=== PATIENT | female | born 1945 | race Caucasian/White ===

== ENCOUNTER 2017-12-01 09:06 | Emergency (ER) | payer OTHER ==
[~2017-12-01] VITALS: Ht 157.5 cm; Wt 68.0 kg
[2017-12-01] MEDS ORDERED: ASPIRIN325 PO (09:35)
[2017-12-01] MEDS ORDERED: KEFLEX500 M1 PO (11:01)
[2017-12-01] MEDS ORDERED: MOBIC7.5 MG PO (11:01)
[2017-12-01 11:45] VITALS: BP 149/85
== END 2017-12-01 11:45 | disposition home or self-care (01) ==
LOC: ER 09:06
DX: M25.462 Effusion, left knee (principal); L03.115 Cellulitis of right lower limb; M23.90 Unspecified internal derangement of unspecified knee; Z88.5 Allergy status to narcotic agent; Z88.1 Allergy status to other antibiotic agents; Z88.2 Allergy status to sulfonamides

== ENCOUNTER 2017-12-11 05:29 | Emergency (ER) | payer OTHER ==
[~2017-12-11] VITALS: Ht 157.5 cm; Wt 68.0 kg
[~2017-12-11 05:29] MED LIST: ASPIRIN325 PO; KEFLEX500 M1 PO; MOBIC7.5 MG PO
[2017-12-11 06:13] LABS: ABSOLUTE NEUTROPHILS 5.5 thou/uL (1.4-8.2); BASOPHILS 1.4 % (0.0-2.0); EOSINOPHILS 1.8 % (0.0-3.0); HEMATOCRIT 32.5 % (37.0-47.0); LYMPHOCYTES 11.7 % (24.0-44.0); MCH 29.6 pg (26.0-34.0); MCHC 33.7 g/dL (28.0-37.0); MCV 87.8 fL (80.0-100.0); MONOCYTES 8.6 % (1.0-8.0); PLATELET COUNT 361 thou/uL (150-400); POLYS 76.5 % (36.0-66.0); RDW 14.9 % (10.5-14.5); WBC 7.1 thou/uL (4.0-11.0)
[2017-12-11 06:22] LABS: CALCIUM 8.8 mg/dL (8.5-10.1); CREATININE 0.7 mg/dL (0.6-1.0); POTASSIUM 3.4 mmol/L (3.5-5.1)
[2017-12-11 06:30] LABS: APTT 31.1 Seconds (24.5-32.8); PROTIME 9.6 Seconds (9.3-11.4)
[2017-12-11 06:35] VITALS: BP 143/68
== END 2017-12-11 07:43 | disposition home or self-care (01) ==
LOC: ER 05:29
PROVIDERS: Emergency Medicine
DX: S83.8X2A Sprain of other specified parts of left knee, initial encounter (principal); M79.7 Fibromyalgia; Z88.5 Allergy status to narcotic agent; Z88.1 Allergy status to other antibiotic agents; Z88.8 Allergy status to other drugs, medicaments and biological substances; Z88.2 Allergy status to sulfonamides; W10.8XXA Fall (on) (from) other stairs and steps, initial encounter; Y93.89 Activity, other specified; Y92.89 Other specified places as the place of occurrence of the external cause; Y99.8 Other external cause status

== ENCOUNTER 2018-11-09 08:18 | Inpatient (IN) | payer OTHER ==
[~2018-11-09] VITALS: Ht 157.5 cm; Wt 68.0 kg
[2018-11-09 08:27] VITALS: BP 160/85
[2018-11-09 09:02] LABS: BE(vivo) 0.5 mmol/L (-2 to +3); HCO3 26.3 mmol/L (22.0-26.0); PCO2 VENOUS 47.1 mmHg (41.0-51.0); PO2 VENOUS 25.6 mmHg (35.0-45.0)
[2018-11-09 09:13] LABS: ABSOLUTE NEUTROPHILS 6.7 thou/uL (1.4-8.2); BASOPHILS 1.3 % (0.0-2.0); EOSINOPHILS 1.1 % (0.0-3.0); HEMATOCRIT 36.7 % (37.0-47.0); HEMOGLOBIN 12.2 gm/dL (12.0-15.0); LYMPHOCYTES 7.3 % (24.0-44.0); MCH 28.6 pg (26.0-34.0); MCHC 33.3 g/dL (28.0-37.0); MCV 85.9 fL (80.0-100.0); MONOCYTES 7.2 % (1.0-8.0); PLATELET COUNT 218 thou/uL (150-400); POLYS 83.1 % (36.0-66.0); RBC 4.27 mil/uL (4.20-5.00); RDW 14.6 % (10.5-14.5); WBC 8.1 thou/uL (4.0-11.0)
[2018-11-09 09:30] LABS: ANION GAP 12 mmol/L (7-16); BUN 15 mg/dL (7-18); CALCIUM 8.7 mg/dL (8.5-10.1); CHLORIDE 101 mmol/L (98-107); CO2 26 mmol/L (21-32); CREATININE 0.7 mg/dL (0.6-1.0); GLUCOSE 113 mg/dL (74-106); POTASSIUM 3.5 mmol/L (3.5-5.1); SODIUM 139 mmol/L (136-145)
[2018-11-09 09:40] LABS: ALBUMIN 3.8 g/dL (3.4-5.0); SALICYLATE 5.3 mg/dL (2.8-20.0); SGOT 32 U/L (15-37); SGPT 31 U/L (30-65); TOTAL BILIRUBIN 0.4 mg/dL (<0.1-1.0); TROPONIN-I <0.06 ng/mL (<0.06)
[2018-11-09 11:16] VITALS: BP 130/74
[2018-11-09 13:13] VITALS: BP 151/82
[2018-11-09 13:30] VITALS: BP 130/86
--- NOTE | 2018-11-09 13:38 | EKG ---
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 : 1945 Requested By: Debbie Jeong Order Number: [id number] MD: Sancho Ferguson Measurements Intervals [place] Rate: 95 P: 43 CA: 142 QRS: -35 QRSD: 159 T: 23 QT: 381 QTc: 479 Interpretive Statements Sinus rhythm Ventricular premature complex Left atrial enlargement Right bundle branch block Left ventricular hypertrophy No previous ECG available for comparison Electronically Signed On 11-09-2018 13:38:11 CDT by Sancho Ferguson [email or web address] ��������������������������������������������� <ELECTRONICALLY SIGNED> ���������������������������������������� By: Sancho Ferguson MD, [facility] ��������������������������������������������� 11/09/18 1338 D: 04/909 9 Sancho Ferguson MD, FACC /EPI
[2018-11-09 15:00] VITALS: BP 113/65
[2018-11-09 19:27] VITALS: BP 116/70
--- NOTE | 2018-11-09 20:03 | NUR ---
Admitted from ED. Complaining of SOA, no symptoms noted after moving to [place]. Alert and Oriented x 4. With Saline lock at L AC. Ambulating independently. Admission care rendered. Dr Goodson informed regarding admission. Patient had CT and Chest xray done. With edema at Left leg +1. Dr. Mccoy seen patient at ED. Breathing on room air.
--- NOTE | 2018-11-10 04:12 | NUR ---
Assumed care at 1845. Pt resting in bed. AOX4. Has been anxious about the rash and swelling of her left leg. Still experiencing episodes of SOA but VSS. Call light within reach. No identified needs at the moment. Will continue to monitor.
[2018-11-10 04:16] VITALS: BP 111/68
[2018-11-10 05:00] LABS: HEMATOCRIT 34.4 % (37.0-47.0); HEMOGLOBIN 11.4 gm/dL (12.0-15.0); MCH 28.6 pg (26.0-34.0); MCHC 33.2 g/dL (28.0-37.0); RDW 14.2 % (10.5-14.5); WBC 6.6 thou/uL (4.0-11.0)
[2018-11-10 05:21] LABS: ANION GAP 8 mmol/L (7-16); BUN 19 mg/dL (7-18); CALCIUM 8.7 mg/dL (8.5-10.1); CHLORIDE 104 mmol/L (98-107); CO2 29 mmol/L (21-32); GLUCOSE 110 mg/dL (74-106); POTASSIUM 3.8 mmol/L (3.5-5.1); SODIUM 141 mmol/L (136-145); TROPONIN-I <0.06 ng/mL (<0.06)
[2018-11-10 07:50] VITALS: BP 136/72
--- NOTE | 2018-11-10 08:05 | EKG ---
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 Assistant: JEN : 1945 Requested By: Juan Juan Order Number: [id number] MD: Ady Stewart Measurements Intervals [place] Rate: 83 P: 64 MA: 138 QRS: -46 QRSD: 153 T: QT: 412 QTc: 485 Interpretive Statements Sinus rhythm RBBB and LAFB Abnrm T, consider ischemia, anterolateral lds Compared to ECG 11/09/2018 09:10:13 Left anterior fascicular block now present Possible ischemia now present Ventricular premature complex(es) no longer present Atrial abnormality no longer present Left ventricular hypertrophy no longer present Electronically Signed On 11-10-2018 8:05:21 CDT by Ady Stewart [email or web address] ��������������������������������������������� <ELECTRONICALLY SIGNED> ���������������������������������������� By: Ady Stewart MD ��������������������������������������������� 11/10/18804 7 7 Ady Stewart MD /EPI
--- NOTE | 2018-11-10 12:51 | 2DMMODE ---
[facility] [address] [place] [address] 2 D/M-MODE ECHOCARDIOGRAM Name: SASHA JOHNSON Room #: 460-P ADM IN M.R.#: [id number] ������������� Admission: 11/09/18 ������������� Attend Phys: Norma Goodson MD Discharge: ��� ������������� ��� Date of : 41 Date of Service: 11/10/18 1251 �� Report #: [id number] �������� ��������������������������������������������[id number] THIS REPORT FOR: //name// APPROVED REPORT Study performed: 11/10/2018 11:08:01 EXAM: Comprehensive 2D, Doppler, and color-flow Echocardiogram Patient Location: Echo lab Room #: [facility] Status: routine BSA: 1.69 HR: 91 bpm BP: 136/72 mmHg Rhythm: RBBB/frequent PVCs Other Information Study Quality: Excellent Indications Congestive Heart Failure Short of breath, leg edema. hx: RBBB 2D Dimensions RVDd: 31.94 mm IVSd: 9.53 (7-11mm) LVOT Diam: 19.38 (18-24mm) LVDd: 59.73 mm PWd: 10.42 (7-11mm) Ascending Ao: 36.94 (22-36mm) LVDs: 55.43 (25-40mm) Aortic Root: 30.33 mm Volumes Left Atrial Volume (Systole) Single Plane 4CH: 61.69 mL Single Plane 2CH: 65.35 mL LA ESV Index: 40.00 mL/m2 Aortic Valve AoV Peak Killian.: 1.63 m/s AO Peak Gr.: 10.58 mmHg LVOT Max P.32 mmHg LVOT Max V: 0.76 m/s CASSIDY Vmax: 1.38 cm2 Mitral Valve E/A Ratio: 0.8 MV Decel. Time: 145.20 ms [facility] [place] [place] [address] 2 D/M-MODE ECHOCARDIOGRAM Name: SASHA JOHNSON Room #: 460-P [facility] IN ..#: [id number] ������������� Admission: 11/09/18 ������������� Attend Phys: Norma Goodson MD Discharge: ��� ������������� ��� Date of : 41 Date of Service: 11/10/18 1251 �� Report #: [id number] �������� ��������������������������������������������[id number] E Max Killian.: 0.83 m/s MV A Killian.: 1.03 m/s MV PHT: 42.11 ms IVRT: 76.12 ms Pulmonary Valve PV Peak Killian.: 0.69 m/s PV Peak Gr.: 1.91 mmHg Pulmonary Vein P Vein S: 0.44 m/s P Vein A: 0.30 m/s P Vein D: 0.41 m/s P Vein A Dur.: 83.0 msec P Vein S/D Ratio: 1.07 Tricuspid Valve RAP Estimate: 5.00 mmHg Left Ventricle Left ventricle is mildly dilated. There is global hypokinesis of the left ventricle. There is normal left ventricular wall thickness. Left ventricular systolic function is severely decreased. LVEF is 25%. Mild diastolic dysfunction is present (impaired relaxation pattern). Right Ventricle The right ventricle is normal size. The right ventricular systolic function is low normal. Atria Left atrium is mild to moderately dilated. The right atrium size is normal. Aortic Valve Aortic valve is trileaflet. No aortic regurgitation is present. There is no aortic valvular stenosis. Mitral Valve The mitral valve is normal in structure. Moderate mitral regurgitation. Tricuspid Valve The tricuspid valve is normal in structure. Trace tricuspid regurgitation. Unable to assess PA pressure. Pulmonic Valve The pulmonary valve is normal in structure. Mild pulmonic regurgitation. [facility] [address] [place] [address] 2 D/M-MODE ECHOCARDIOGRAM Name: SASHA JOHNSON Room #: 460-P [facility] IN .R.#: [id number] ������������� Admission: 11/09/18 ������������� Attend Phys: Norma Goodson MD Discharge: ��� ������������� ��� Date of : 41 Date of Service: 11/10/18 1251 �� Report #: [id number] �������� ��������������������������������������������[id number] Great Vessels The aortic root is normal in size. The ascending aorta is normal in size. IVC is normal in size and collapses >50% with inspiration. Pericardium There is no pericardial effusion. <Conclusion> Left ventricular systolic function is severely decreased. LVEF is 25%. Mild diastolic dysfunction is present (impaired relaxation pattern). Aortic valve is trileaflet. No aortic regurgitation or stenosis The mitral valve is normal in structure. Moderate mitral regurgitation. Pulmonary artery systolic pressure could not be reliably ascertained. There is no pericardial effusion. ��������������������������������������������� <ELECTRONICALLY SIGNED> ���������������������������������������� By: Sancho Ferguson MD, FACC ��������������������������������������������� 11/10/18 1251 125 125 Sancho Ferguson MD, FACC /INF
[2018-11-10 14:38] VITALS: BP 123/79
--- NOTE | 2018-11-10 14:40 | NUR ---
PT ADMITTED RELATED TO SOA. CM REVIEWED CHART AND SPOKE WITH CARE TEAM. CM MET WITH PT AT BEDSIDE THIS DAY. PT IS A&O X4. CM ROLE INTRODUCED. PT INDICATED SHE LIVES IN A HOUSE WITH A ROOMMATE WITH 2 STEPS TO ENTER WITH BL HANDRAILS AND 12 STEPS TO BASEMENT. 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 PT INDICATED NO DME OR HH HX. PT IS WITHOUT A PCP. CM TO PROVIDE LIST OF PCPS HERE AT [facility]. PT INDICATED SHE PLANS TO RETURN HOME ONCE MEDICALLY STABLE. CM TO FOLLOW INDICATED WITH DC PLANNING.
--- NOTE | 2018-11-10 19:24 | NUR ---
Received awake on bed. Alert and oriented x 4. Breathing on room air. Up ad venu. Patient complained of itchiness and rashes on neck, arms and knees- Dr Valdes informed and prescribed oinment- applied as prescribed. Patient had echo today. With episodes of Tachycardia upon ambulating around the room. Patient seen by Dr. Lopez- for fluid restriciton, advised patient, for daily weights, and cardio consult. Patient for Angiograpgy tomorrow- consent to be signed, patient asked time to decide and has to ask her room mate for advise, will inform nurse once with decision; handed over to night assistant. For NPO midnight if patient agrees to have procedure-instructed patient. Patient been hesitant to take medications and asked additional time to take oral medications thus delayed time in administration.
[2018-11-10 19:38] VITALS: BP 99/56
--- NOTE | 2018-11-11 02:16 | NUR ---
PATIENT AOX4 MAKES NEEDS KNOWN. PATIENT REFUSED TO SIGN THE CONSENT BECAUSE SHE DON'T KNOWN WHICH DRRoxana IS DOING HER PCI/PTCA. PATIENT DENIED PAIN OR DISCOMFORT. PATIENT ENCOURAGED TO ELEVATE BLE D/T DUE TO TRACES OF EDEMA ON BLE. PATIENT IN BED ASLEEP AT THIS TIME BREATHING REGULAR AND UNLABOURED.
[2018-11-11 03:22] VITALS: BP 107/62
[2018-11-11 14:35] VITALS: BP 98/55
--- NOTE | 2018-11-11 17:11 | NUR ---
PT HAD GONE DOWN TO SERVER MANAGER THIS AM. PT HAD A FALL THIS AFTERNOON. CM FOLLOWING INDICATED WITH DC PLANNING.
--- NOTE | 2018-11-11 17:18 | EKG ---
[address] [place] [address] ELECTROCARDIOGRAM REPORT Name: SASHA JOHNSON Room #: 460-P ADM IN M.R.#: [id number] ������������������ Admission: 11/09/18 ������������������ Attend Phys: Norma Goodson MD Discharge: ������������������ Date of : 41 Report #: [id number] ����������������������������������������������������������������� [id number] THIS REPORT FOR: //name// [facility] Test Date: 2018-11-11 Test Time: 14:46:57 Pat Name: SASHA JOHNSON Department: Room: 460 P Gender: F Corporate Planner: Germain IBRAHIM : 1945 Requested By: Juan Juan Order Number: [id number] MD: Ady Stewart Measurements Intervals [place] Rate: 78 P: 53 MD: 133 QRS: -53 QRSD: 148 T: 192 QT: 406 QTc: 463 Interpretive Statements Sinus rhythm Multiple ventricular premature complexes RBBB and LAFB LVH with secondary repolarization abnormality Compared to ECG 11/10/2018 05:18:41 Electronically Signed On 11-11-2018 17:18:15 CDT by Ady Stewart [email or web address] ��������������������������������������������� <ELECTRONICALLY SIGNED> ���������������������������������������� By: Ady Stewart MD ��������������������������������������������� 11/11/18 1718 1446 1446 Ady Stewart MD /[facility]
[2018-11-11 18:30] VITALS: BP 98/55
--- NOTE | 2018-11-11 18:34 | NUR ---
PATIENT FELL WHILE AMBULATING IN [place]. DR. HWANG NOTIFIED. REPORTS SHE FELT DIZZY AND HIT RIGHT HINDUISM ON WALL. REMAINS ON ROOM AIR. LEFT AC SALINE LOCK INTACT. AAOX4. DENIES PAIN. STEADY GAIT GETTING BACK TO BED.
[2018-11-11 19:55] VITALS: BP 91/50
[2018-11-11 23:40] VITALS: BP 91/57
[2018-11-12 03:57] VITALS: BP 97/55
--- NOTE | 2018-11-12 07:00 | NUR ---
PT AOX4. POST FALL DAY ONE. PT IS NON COMPLIENT WITH HOSPITAL FALL PRECAUTION. GAIT IS STEADY. NO NEURO CHANGE. NO OTHER CONCERN. PT PROGRESSING TOWARDS DC GOALS.
[2018-11-12 08:13] VITALS: BP 117/60
[2018-11-12 09:12] VITALS: BP 132/74
[2018-11-12 09:13] VITALS: BP 127/86
[2018-11-12 09:14] VITALS: BP 113/62
[2018-11-12 09:20] LABS: HEMATOCRIT 41.1 % (37.0-47.0); MCH 28.4 pg (26.0-34.0); MCHC 33.1 g/dL (28.0-37.0); MCV 85.9 fL (80.0-100.0); RBC 4.78 mil/uL (4.20-5.00); RDW 14.2 % (10.5-14.5); WBC 6.9 thou/uL (4.0-11.0)
[2018-11-12 09:28] LABS: CALCIUM 9.9 mg/dL (8.5-10.1); CREATININE 0.8 mg/dL (0.6-1.0); POTASSIUM 4.3 mmol/L (3.5-5.1)
[2018-11-12 09:37] LABS: HEMOGLOBIN 13.6 gm/dL (12.0-15.0)
[2018-11-12] MEDS ORDERED: LISINOPRIL5 MG PO (09:57)
[2018-11-12] MEDS ORDERED: CARVEDILOL3.125 MG PO (09:57)
--- NOTE | 2018-11-12 11:42 | NUR ---
Assumed pt care this am, she is non-compliant for medication and fall precautions. Pt insisted that she is to be dc today as per Dr. Juan. INformed Dr. Barksdale, consulted Dr. Juan and got clearance for pt to be dc. Awaiting DC orders.
[2018-11-12] MEDS ORDERED: TRIAMCINOLONE A80 G2 TOP (11:53)
[2018-11-12] MEDS ORDERED: ASPIR 8181 MG PO (11:53)
[2018-11-12 12:03] VITALS: BP 113/62
--- NOTE | 2018-11-13 09:28 | CATHLAB ---
[facility] [place] [address] INVASIVE PROCEDURE REPORT Name: SASHA JOHNSON Room #: 460-P [facility] IN ..#: [id number] ������������� Admission: 11/09/18 ������������� Attend Phys: Norma Goodson MD Discharge: ��� 11/12/18 ������������� ��� Date of : 41 Date of Service: 11/13/18 0928 �� Report #: [id number] �������� ��������������������������������������������[id number] THIS REPORT FOR: //name// APPROVED REPORT Study performed: 11/11/2018 07:08:10 Patient Details The patient is a 73 year-old female Event Personnel Juan Juan Drafting Supervisor, Moshe Rose RN, Batsheva Matthews RTR, Elvin Rojas Valisa Monitor, Aurora Evans supervisor knitting Performed Right and Left Heart Cath w/or w/o Coronarie [id number] [facility] Indication Chest pain Procedure Narrative The Right Groin^ was infiltrated with 1% Lidocaine subcutaneous anesthesia. A Right Heart Catheterization was performed with a 7 Fr. Norman-Tracy catheter and pressure were recorded. Cardiac outputs were obtained by the Thermal Dilution method. A PINNACLE 6FR Sheath #[id number] sheath was inserted into the RFA^. Coronary angiography was performed using coronary diagnostic catheters. The right coronary system was accessed and visualized with a JR4 catheter. The left coronary system was accessed and visualized with a JL4 catheter. The left ventricle was accessed and visualized with a Pigtail catheter. Left ventriculogram was performed in MCADAMS projection. An aortogram of the abdominal aorta was performed. Closure device was deployed with a Fr MYNXGRIP 6/7F #[id number]. Hemostasis was obtained with manual pressure following sheath removal without any complications. The patient tolerated the procedure well and there were no complications associated with the procedure. There was no hematoma. Intraoperative Conscious Sedation Sedation start time: 744 Case end Time: 814 Fentanyl 50 mcg Versed 1 mg Fluoro Time: 2.55 minutes [facility] [place] [address] INVASIVE PROCEDURE REPORT Name: SASHA JOHNSON Room #: 460-P [facility] IN M.R.#: [id number] ������������� Admission: 11/09/18 ������������� Attend Phys: Norma Goodson MD Discharge: ��� 11/12/18 ������������� ��� Date of : 41 Date of Service: 11/13/18 0928 �� Report #: [id number] �������� ��������������������������������������������[id number] Dose: DAP 1617.50 cGycm2 152 mGy Contrast Type and Amount: Visipaque 125 ml Hemodynamics The right atrial mean pressure is 20/5 mmHg. The right ventricular pressure is 30/2 mmHg. The pulmonary artery pressure is 32/14 mmHg with a mean of mmHg. The mean pulmonary capillary wedge pressure is 14 mmHg. The aortic pressure is 113/56 mmHg with a mean of mmHg. The left ventricular pressure is 100/8 mmHg with a mean of mmHg. The cardiac output using thermo method is 4.00 L/min. The cardiac index using thermo method is 2.37 L/min/m2. Conclusion #1 mildly dilated left ventricle with mildly severe global hypokinesis EF 15-20% #2 abdominal aortogram revealing mild abdominal aortic ectasia no aneurysm or stenosis. #3 left main with mild irregularity giving rise to circumflex and LAD #4 LAD with mild mid vessel disease 30-40% no occlusive disease is noted #5 a codominant circumflex artery widely patent #6 codominant right coronary artery widely patent #7 successful right heart catheterization with cardiac output by thermodilution see above hemodynamics Indications and plan continue aggressive risk factor modification. Cardiomyopathy appears to be idiopathic in nature. Salt and fluid restriction. Will institute proper heart failure medications. Transfer to telemetry ��������������������������������������������� <ELECTRONICALLY SIGNED> ���������������������������������������� By: Juan Juan MD, FACC ��������������������������������������������� 11/13/18927 7 7 Juan Juan MD, FACC /INF
== END 2018-11-12 14:28 | disposition home or self-care (01) | DRG 286 ==
LOC: ER 08:18 → 4W 10:56 → EROBS 10:56 → 4W 13:00
PROVIDERS: Nurse Practitioner Adult Health; Student in an Organized Health Care Education/Training Program; ADMIT Internal Medicine
DX: I11.0 Hypertensive heart disease with heart failure (principal); J96.01 Acute respiratory failure with hypoxia; I50.23 Acute on chronic systolic (congestive) heart failure; D64.9 Anemia, unspecified; I45.4 Nonspecific intraventricular block; I95.9 Hypotension, unspecified; M79.7 Fibromyalgia; L20.9 Atopic dermatitis, unspecified; R53.82 Chronic fatigue, unspecified; T50.2X5A Adverse effect of carbonic-anhydrase inhibitors, benzothiadiazides and other diuretics, initial encounter; R41.81 Age-related cognitive decline; Z88.5 Allergy status to narcotic agent; Z88.8 Allergy status to other drugs, medicaments and biological substances; Z88.1 Allergy status to other antibiotic agents; Z91.19 Patient's noncompliance with other medical treatment and regimen; Y92.89 Other specified places as the place of occurrence of the external cause; Z79.899 Other long term (current) drug therapy; Z79.82 Long term (current) use of aspirin
CPT/HCPCS: 10045

== ENCOUNTER → 2019-07-01 | Outpatient (CLI) | payer OTHER ==
[~2019-07-01] MED LIST changes: +ASPIR 8181 MG PO; +CARVEDILOL3.125 MG PO; +LISINOPRIL5 MG PO; +TRIAMCINOLONE A80 G2 TOP
== END ==
LOC: CAT 06-10 11:35
DX: Z13.6 Encounter for screening for cardiovascular disorders (principal); E78.00 Pure hypercholesterolemia, unspecified; I25.10 Atherosclerotic heart disease of native coronary artery without angina pectoris

== ENCOUNTER 2020-12-26 10:25 | Inpatient (IN) | payer OTHER ==
[~2020-12-26] VITALS: Ht 157.5 cm; Wt 63.5 kg
--- NOTE | ~2020-12-26 | EMS ---
[address] [address] EMS Patient Care Report Name: SASHA JOHNSON Room #: 443-P ADM IN M.R.#: [id number] Admission: 12/26/20 Attend Phys: Norma Goodson MD Discharge: Date of : 43 Report #: [id number] THIS REPORT FOR: //name// Report Transmitted: 12/26/2020 14:30 EMS Care Summary [facility] MED-ACT Incident [id number] @ 12/26/2020 09:46 Incident Location [address] [place] [address] Patient SASHA JOHNSON Female, 75 Years 1945 Patient Address [address] [place] [address] Patient History Hypertension (HTN), Patient Allergies Sulfa,Other drug allergy, Patient Medications Polyethlene Glycol, Lisinopril, Carvedilol, Tramadol, Aspirin, Chief Complaint R knee pain Disposition Transported No Lights/[place]ells Dispatch Reason Falls Transported To [facility] Narrative Sasha was seen in the ED a week ago for knee pain. She was told she has a cyst in her R knee. Since the the pain has become worse and today she is unable to stand on her R leg. This caused her to fall just HIM MANAGER. OPFD helped her off the floor and into a chair. She does not feel that she is injured from the [address] [address] EMS Patient Care Report Name: SASHA JOHNSON Room #: 443-P [facility] IN M.R.#: [id number] Admission: 12/26/20 Attend Phys: Norma Goodson MD Discharge: Date of : 43 Report #: [id number] fall. The pain in her knee is the same as prior to the fall. She did not hit her head. Upon our arrival she is sitting in a chair and in NAD. We slid her to the cot in the chair and then helped her to stand to the cot. She was comfortable en-route. Sheet pull to ED bed with report to RN. Initial Vitals @09:58P: 95,R: 18,BP: 157/87,Pain: 4/10,GCS: 15,Temp: 98F,SpO2: 97,Revised Trauma: 12, Assessments @09:54MENTAL:Person Oriented,Time Oriented,Place Oriented,Event Oriented,SKIN:HEENT:Head/Face: No Abnormalities,LUNG SOUNDS:ABDOMEN:PELVIS//GI:EXTREMITIES:Right Leg: Other,PULSE:NEURO: Impression Extremity Pain Procedures @10:00Surgical Mask on PatientResponse: Unchanged Timeline 09:44,Call Received 09:44,Psap Call 09:46,Dispatched 09:46,En Route 09:52,On Scene 09:53,At Patient 09:58,BP: 157/87 M,PULSE: 95,RR: 18 R,SPO2: 97 Ox,ETCO2: ,BG: ,PAIN: 4,GCS: 15, 10:00,Surgical Mask on Patient,Response: Unchanged 10:01,Depart Scene 10:23,At Destination 10:41,Call Closed Disclaimer v1.1 Copyright 2020 [email or web address] This EMS Care Summary contains data elements from the applicable legal record (which may be displayed differently). It is designed to provide pertinent information for the following purposes: continuity of care, clinical quality, and state data reporting. The complete legal record is available to ED staff and administrators of the receiving hospital in [employer]'s Patient Tracker. All data is provided "as is."
[2020-12-26 10:26] VITALS: BP 147/68
--- NOTE | 2020-12-26 10:38 | NUR ---
NAINA ZUÑIGA (ROOM-MATE) [phone]
[2020-12-26 12:41] VITALS: BP 142/60
[2020-12-26 13:02] VITALS: BP 146/65
[2020-12-26 13:08] LABS: ABSOLUTE NEUTROPHILS 7.2 thou/uL (1.4-8.2); EOSINOPHILS 0.7 % (0.0-3.0); HEMATOCRIT 32.3 % (37.0-47.0); HEMOGLOBIN 11.1 gm/dL (12.0-15.0); LYMPHOCYTES 7.4 % (24.0-44.0); MCHC 34.3 g/dL (28.0-37.0); MCV 84.4 fL (80.0-100.0); MONOCYTES 13.6 % (1.0-8.0); PLATELET COUNT 574 thou/uL (150-400); POLYS 77.3 % (36.0-66.0); RBC 3.83 mil/uL (4.20-5.00); WBC 9.4 thou/uL (4.0-11.0)
[2020-12-26 13:09] LABS: URINE BILIRUBIN NEGATIVE (Negative); URINE BLOOD TRACE (Negative); URINE CLARITY CLEAR; URINE COLOR YELLOW; URINE GLUCOSE-RANDOM* NEGATIVE (Negative); URINE KETONES TRACE (Negative); URINE LEUKOCYTES-REFLEX NEGATIVE (Negative); URINE NITRITE-REFLEX NEGATIVE (Negative); URINE PROTEIN (DIPSTICK) NEGATIVE (Negative)
[2020-12-26 13:16] LABS: CALCIUM 8.9 mg/dL (8.5-10.1); CREATININE 0.6 mg/dL (0.6-1.0); POTASSIUM 3.8 mmol/L (3.5-5.1)
[2020-12-26 14:36] LABS: FOLIC ACID 19.6 ng/mL (8.6-58.9)
[2020-12-26 18:22] VITALS: BP 137/77
--- NOTE | 2020-12-26 18:30 | NUR ---
PT RECEIVED FROM THE ER AT 1330 ALERT AND C/O RT KNEE PAIN FOR SEVERAL DAYS NOW. ICE PACKS HELPING. KNEE HOT AND SWOLLEN. ORTHOPEDICS CONSULTED AND WILL SEE IN AM. PT EATING AND DRINKING WELL. UP TO BSC W/ ASSIST. PAIN MEDS HELPING.
[2020-12-26 19:25] VITALS: BP 122/80
[2020-12-26 23:18] LABS: BF NUCLEATED CELLS 87005 /mm3; BF RBC 37930 /mm3
[2020-12-26 23:19] LABS: CLARITY TURBID; COLOR AMBER; TOTAL VOLUME 20 mL
[2020-12-26 23:20] LABS: SOURCE SYNOVIAL
[2020-12-26 23:27] LABS: BF CRYSTALS No Crystals seen (NONE SEEN)
[2020-12-26 23:57] LABS: BF MACROPHAGE 2 %; BF NEUTROPHILS 91 %
[2020-12-27 04:29] VITALS: BP 114/59
--- NOTE | 2020-12-27 05:04 | NUR ---
RECEIVED CARE OF THIS PATIENT AT 1900. PATIENT ALERT AND ORIENTED X4. R KNEE EDEMATOUT AND TENDER TO TOUCH. DR REBOLLAR WAS HERE AND ZAINA OFF SEVERAL CC OF FLUIDS. SENT SOME TO LAB. KNEE WAS WRAPPED IN JÚNIOR. C/O PAIN, MED GIVEN. SLEPT MOST OF NIGHT.
[2020-12-27 05:34] LABS: ABSOLUTE NEUTROPHILS 4.8 thou/uL (1.4-8.2); BASOPHILS 1.7 % (0.0-2.0); EOSINOPHILS 1.8 % (0.0-3.0); HEMATOCRIT 31.6 % (37.0-47.0); HEMOGLOBIN 10.4 gm/dL (12.0-15.0); LYMPHOCYTES 12.3 % (24.0-44.0); MCH 27.7 pg (26.0-34.0); MCHC 32.8 g/dL (28.0-37.0); MCV 84.5 fL (80.0-100.0); MONOCYTES 14.1 % (1.0-8.0); PLATELET COUNT 587 thou/uL (150-400); POLYS 70.1 % (36.0-66.0); RBC 3.74 mil/uL (4.20-5.00); RDW 14.2 % (10.5-14.5); WBC 6.8 thou/uL (4.0-11.0)
[2020-12-27 08:00] VITALS: BP 143/71
--- NOTE | 2020-12-27 14:13 | NUR ---
PT ADMITTED RELATED TO RIGHT KNEE PAIN AND FALLS. CM REVIEWED CHART AND SPOKE WITH CARE TEAM. CM MET WITH PT AT BEDSIDE THIS DAY. PT APPEARED TO BE A&O X4. CM ROLE INTRODUCED. PT INDICATED SHE LIVES IN A HOUSE WITH A ROOMMATE TOO. PT INDICATED THERE IS A RAMP TO ENTER AND 1 STEP INSIDE. PT INDICATED THEY HAVE A WHOLE BASEMENT OF DME SHOULD SHE NEED ANYTHING. 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 PT INDICATED SHE WOULD BE RECEPTIVE TO POST ACUTE CARE STAY IF IT WOULD BENEFIT HERE. SHE HAD BEEN SEEN BY DR. BROOKS FROM [facility] PT IS [employer]. SHE DIDN'T WANT A SNF LIST FOR REVIEW AT THIS TIME. PT IS AWAITING MRI OF KNEE. CM FOLLOWING REGARDING DC PLANNING.
[2020-12-27 16:30] VITALS: BP 138/66
--- NOTE | 2020-12-27 16:32 | NUR ---
Received awake on bed.
--- NOTE | 2020-12-27 18:15 | NUR ---
Received awake on bed. Due medications given as prescribed, able to swallow meds w/o difficulty. On room air. Vital signs stable. On MS, not on telemetry; no complains and signs of chest pain, crushing sensnsation and heaviness. Assisted in ADLs. On regular diet- encouraged and assisted in eating and drinking, no nausea, no vomiting and no abdominal pain noted. Contient of bowel and bladder, requesting to use the bedpan as of the moment due to pain at R knee. With SL at R AC- intact and flushing well. Falls bundle in place. S/P Rt knee aspiration 12/26, ice packs provided. Complained of pain, due PRN pain meds given as prescribed. Pt seen and examined by Dr Ledezma- for MRI of R knee today- checklist filled up and faxed to MRI; as per staff they might do procedure this PM- physician updated. Pt seen and examined by Dr Urena this PM, asked physician for additional PRN pain meds for MRI this PM, a/w orders.
[2020-12-27 19:54] VITALS: BP 145/78
[2020-12-28 04:47] VITALS: BP 136/80
[2020-12-28 07:53] VITALS: BP 112/67
--- NOTE | 2020-12-28 08:06 | NUR ---
PT ALERT/FORGETFUL AND CONFUSED.UP WITH ASSIST TO THE BSC.PT'S R KNEE SWOLLEN AND WARM TO TOUCH.ICE PACK TO THE KNEE.PT OBSERVED TO BE TEARFUL EARLY THIS AM,EMOTIONAL SUPPORT GIVEN.PAIN CONTROLLED WITH IV AND PO MED.REPORT TO AM NURSE.
--- NOTE | 2020-12-28 12:15 | NUR ---
PT HAD MRI LATER YESTERDAY. PT AND OT HAVE ATTEMTPED TO WORK WITH PT BUT SHE IS HESITANT TO WORK WITH THEM UNTIL ORTHO READS MRI RESULTS AND A PLAN IS CONVEYED. ORTHO INDICATED POSSIBLE STEROID INJECTION. CM FOLLOWING REGARDING DC PLANNING.
--- NOTE | 2020-12-28 13:07 | NUR ---
Assumed care of pt at 0700. Pt c/o pain in rt knee. Prn pain meds administered. Pt will have I&D today. NPO. Call light within reach. Fall precautions in place. Will continue to monitor.
[2020-12-28 15:26] VITALS: BP 145/72
[2020-12-28 19:42] VITALS: BP 160/82
[2020-12-29 05:31] LABS: HEMATOCRIT 33.8 % (37.0-47.0); HEMOGLOBIN 11.3 gm/dL (12.0-15.0); MCH 28.4 pg (26.0-34.0); MCHC 33.5 g/dL (28.0-37.0); MCV 84.7 fL (80.0-100.0); RDW 14.5 % (10.5-14.5); WBC 8.6 thou/uL (4.0-11.0)
[2020-12-29 05:42] VITALS: BP 128/61
[2020-12-29 06:16] LABS: CALCIUM 8.7 mg/dL (8.5-10.1); CREATININE 0.5 mg/dL (0.6-1.0); POTASSIUM 3.9 mmol/L (3.5-5.1)
--- NOTE | 2020-12-29 08:21 | NUR ---
PT'S PAIN MANAGED WITH PO AND IV MED.PT REF TO GET UP TO THE BSC DUE TO INCREASE IN HER PAIN,PREFERRRED TO USE THE BEDPAN.DRSG TO HER R KNEE C/D/I.HEMOVAC WITH MIN DRAINAGE NOTED.PT ABLE TO MAKE HER NEEDS KNOWN.REPORT TO AM NURSE.
[2020-12-29 09:00] VITALS: BP 135/61
--- NOTE | 2020-12-29 11:39 | O ---
[facility] [place] [address] OPERATIVE REPORT Name: SASHA JOHNSON Room #: 443-P ADM IN M.R.#: [id number] Admission: 12/26/20 Attend Phys: Norma Goodson MD Discharge: Date of : 41 Report #: [id number] THIS REPORT FOR: cc: SHIV OWEN Physician not on staff Dalton Ledezma MD ~ DOC #: [id number] Dalton Ledezma MD DATE OF SERVICE: 12/28/2020 PREOPERATIVE DIAGNOSES: 1. Septic right knee arthritis. 2. Right knee lateral meniscus tears. 3. Right knee osteoarthritis. POSTOPERATIVE DIAGNOSES: 1. Septic right knee arthritis. 2. Right knee lateral meniscus tears. 3. Right knee osteoarthritis. PROCEDURES: 1. Right knee arthroscopic irrigation and debridement with synovectomy. 2. Right knee partial lateral meniscectomy. SURGEON: Dalton Ledezma MD ANESTHESIA: General. ESTIMATED BLOOD LOSS: 10 mL. DRAINS: One Hemovac drain was placed to the wound. COMPLICATIONS: There were no complications. DESCRIPTION OF PROCEDURE: The patient was brought to the operating room where she was placed under general anesthesia. Once under adequate general anesthesia, her right lower extremity was prepped and draped in a sterile manner. The extremity was elevated and a tourniquet placed to 300 mmHg. An anteromedial arthroscopic portal was made in the usual fashion with the scope in the suprapatellar pouch. There was abundant purulence noted upon entrance of the trocar. A suprapatellar lateral portal was made in the usual fashion as well for an outflow. Normal saline was then flushed through the knee. Upon examination of the knee, it is noted in the trochlea to have arthritic changes. Similarly in the lateral compartment, the lateral meniscus had a large longitudinal radial type tear. This was debrided with the arthroscopic shaver through a separate lateral portal, which was made in the usual fashion. The [address] [address] OPERATIVE REPORT Name: SASHA JOHNSON Room #: 443-P [facility] IN M.R.#: [id number] Admission: 12/26/20 Attend Phys: Norma Goodson MD Discharge: Date of : 41 Report #: [id number] synovium was debrided as well with the arthroscopic shaver and synovectomy performed about the joint. The medial compartment did not show any meniscus tears. The ACL was intact. The wound was then continued to be irrigated with 6000 mL of normal saline solution. Once complete, a Hemovac drain was placed through the lateral portal and out through the proximal lateral thigh. The wounds were closed with nia for the skin. The wounds were dressed with Xeroform, 4 x 4's, and a sterile soft compressive dressing was placed. Tourniquet was let down at approximately 30 minutes. There were no complications from the procedure. The patient tolerated the procedure well and was taken to the recovery room without incident. Dalton Ledezma MD MTK/MAKSIM <ELECTRONICALLY SIGNED> By: Dalton Ledezma MD 12/29/20 1139 [id number] Dalton Ledezma MD /nt
--- NOTE | 2020-12-29 13:20 | NUR ---
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 TO ROOM TO EXPLAIN NEED FOR PICC, PROCEDURE, RISKS, ETC. PT HAD MANY QUESTIONS PERTAINING TO DISCHARGE, WHICH THIS RN COULD NOT PROVIDE. TOLD HER DR GUZMAN AND CM WORKING ON DETAILS. PT SIGNED CONSENT, BUT AFTER THIS RN PUT ALL SUPLIES ON TABLE AND READY TO ASSESS HER ARM WITH US, SHE SAID "I NEED TO MAKE A PHONE CALL BEFORE YOU GO ANY FURTHER." SHE THEN SAID SHE'D LIKE TO WAIT UNTIL SHE KNOWS MORE DETAILS ABOUT HER DISCHARGE.
--- NOTE | 2020-12-29 13:22 | NUR ---
ASSUMED CARE OF PT AT 0700. PT ALERT AND ORIENTED TO PERSON, PLACE, AND TIME. PT APPEARS TO BE CONFUSED/ANXIOUS ABOUT CURRENT HOSPITALIZATION. PT FREQUENTLY REPEATS QUESTIONS IN REGARDS TO EATING AND INSURANCE. THIS AFTERNOON PT WAS VERY HESITANT TO GET PICC AND OPTED NOT TO HAVE PICC DONE AT TIME UNTIL SHE WAS ABLE TO MAKE A PHONE CALL. PT WAS UNABLE TO REACH THE PERSON SHE WAS CALLING AND THEREFORE DECIDED TO POSTPONE PICC. WILL CONTINUE TO MONITOR.
[2020-12-29 15:40] VITALS: BP 141/74
--- NOTE | 2020-12-29 16:57 | NUR ---
PT HAD I&D YESTERDAY. CARE TEAM INDICATED THAT PT WILL NEED 4 WEEKS IV ABX UPON DC. CM PROVIDED PT WITH A [facility] SNF LIST FOR REVIEW. CM FOLLOWING REGARDING DC PLANNING.
--- NOTE | 2020-12-29 18:18 | NUR ---
PT NOTED TO BE SCRATCHING RIGHT BUTTOCKS. UPON INSPECTION BY THIS RN PT WAS NOTED TO HAVE MULTIPLE SMALL TEARS TO RIGHT BUTTOCKS. BARRIER CREAM APPLIED TO AREA. WILL CONTINUE TO MONITOR.
[2020-12-29 20:09] VITALS: BP 109/56
--- NOTE | 2020-12-30 01:54 | NUR ---
UPON SHIFT ASSESSMENT, PT SLEEPING, AROUSES EASILY. PT AOX4 WITH INTERMITTENT FORGETFULNESS. PT REPORTS 10/10 PAIN IN RIGHT KNEE WELL RLE. PAIN NOTED TO WORSEN WITH TACTILE STIMULATION, MOVEMENT, AND ACTIVITY. PT RELUCTANT TO ICE PACKS, REINFORCED EDUCATION PROVIDED, PT AGREEABLE. PT RECEIVING PRN IV FENTANYL Q4HR AND PRN PO NORCO Q4HR WITH PRN PO APAP Q6HR AVAILABLE. PT DENIES SOB WHILE ON ROOM AIR. PT TOLERATING PO INTAKE OF CLEAR LIQUID DIET WITHOUT ISSUE. PT WITHOUT NAUSEA OR EMESIS. PT RESTING IN BED THROUGHOUT SHIFT, FREQUENT REPOSITIONING ENCOURAGED, PT NOTED TO SHIFT INDEPENDENTLY WHILE IN BED. PT VOIDING PER BEDPAN AND CHUX. EXCORIATION NOTED TO RIGHT BUTTOCK, BARRIER CREAM APPLIED. PT NOTED TO SCRATCH AT MULTIPLE PLACES THROUGHOUT BODY, OPENING SCABS. PT ENCOURAGED TO NOTIFY STAFF FOR ALL NEEDS, CALL LIGHT WITHIN REACH, BED ALARM ON, BED LOCKED IN LOWEST POSITION, FREQUENT MONITORING WILL CONTINUE.
[2020-12-30] MEDS ORDERED: HYDROCORTISON28.4 G5 TOP (06:01)
[2020-12-30 06:03] LABS: HEMATOCRIT 30.7 % (37.0-47.0); HEMOGLOBIN 10.3 gm/dL (12.0-15.0); MCH 28.2 pg (26.0-34.0); MCHC 33.5 g/dL (28.0-37.0); MCV 84.3 fL (80.0-100.0); RBC 3.64 mil/uL (4.20-5.00)
[2020-12-30] MEDS ORDERED: HYDROCORTISON TOP (06:04)
[2020-12-30 06:32] LABS: CALCIUM 8.1 mg/dL (8.5-10.1); CREATININE 0.5 mg/dL (0.6-1.0); POTASSIUM 3.7 mmol/L (3.5-5.1)
[2020-12-30 07:40] VITALS: BP 115/67
--- NOTE | 2020-12-30 12:04 | NUR ---
Pharmacy Grad Intern attempted to visit with the pt regarding SNF referrals. The pt has been reveiwing the [facility] SNF list and circled [facility] as well as [facility] as her top two choices;however the pt refused to confirm her choices and discuss the referral and ins auth process with me. She requested Jaron from PT stating she wanted him to verifying what I was saying and discuss her choices. Jaron revisited with the pt and she confirmed the above. Her third choice would be [facility]. Dc network planner to fax referrals to her first two choices and to submit for auth if either can accept. Dc anticipated Saturday. Pt will need SNF for ivatb x 4 wks, wound care and therapy. She is WBAT but has struggled due to pain in her knee. She was A &ox3 but easily mixed up and confused during the conversation. Will follow.
[2020-12-30 15:50] VITALS: BP 124/52
--- NOTE | 2020-12-30 18:30 | NUR ---
PT ASSESSED AT START OF SHIFT. HEMOVAC DRAIN FELL OUT DURING NOC SHIFT. SITE SEALED OVER. DSNG DRY AND INTACT. PAIN MEDS GIVEN PER REQUEST. PT WORKED W/ THERAPIST THIS AM BUT NOT ABLE TO DO MUCH. DR. REBOLLAR IN AND STATED PT NOT READY FOR DISCHARGE SHE CANNOT STAND ON HER LEG.
[2020-12-30 19:22] VITALS: BP 128/62
--- NOTE | 2020-12-31 02:47 | NUR ---
PT C/O PAIN TO HER R KNEE,MANAGED WITH MED.PT ALERT/CONFUSED AND FORGETFUL.REDNESS NOTED TO HER BUTTOCK FROM HER SCRATCHING IT,BARRIER CREAM APPLIED.DRSG TO HER R KNEE C/D/I.PT REF TO GET UP AND USE BSC,PREFERS BEDPAN. EDUCATION GIVEN.PT CONT WBAT.PT ABLE TO REPOSITION SELF IN BED,PAINFUL SOMETIMES.PT PROGRESSING SLOWLY TOWARDS DC GOALS.CALL LIGHT WITHIN REACH.
[2020-12-31 04:30] VITALS: BP 111/53
[2020-12-31 05:21] LABS: HEMATOCRIT 28.7 % (37.0-47.0); HEMOGLOBIN 9.7 gm/dL (12.0-15.0); MCH 28.6 pg (26.0-34.0); MCHC 33.7 g/dL (28.0-37.0); MCV 84.7 fL (80.0-100.0); RBC 3.39 mil/uL (4.20-5.00); RDW 14.2 % (10.5-14.5); WBC 8.1 thou/uL (4.0-11.0)
[2020-12-31 05:44] LABS: CALCIUM 8.4 mg/dL (8.5-10.1); CREATININE 0.5 mg/dL (0.6-1.0); POTASSIUM 3.5 mmol/L (3.5-5.1)
[2020-12-31 07:40] VITALS: BP 133/70
--- NOTE | 2020-12-31 14:17 | NUR ---
VAT CONSULTED FOR PICC PLACEMENT, FOR ASSISTED IV ABX THERAPY. THIS IS THE 3RD ATTEMPT TO SPEAK WITH PT/EDUCATE HER ON NEED OF PICC TO CONTINUE TREATMENT, ONCE DISCHARGED. PT SITTING UP IN CHAIR AND HAD JUST WALKED FROM BSC TO CHAIR. EXPLAINED REASON FOR MY PRESENCE AND NEED TO PROCEED BEFORE SHE DISCHARGES ON SATURDAY. ALSO EXPLAINED THAT SHE HAS NOW LOST PIV ACCESS, SO THERE IS NO WAY TO GIVE HER THE IV ABX, THUS ANOTHER REASON TO INSERT PICC NOW. EXPLAINED THAT A PIV WOULD HAVE TO BE INSERTED IF SHE IS NOT READY FOR PICC. SHE SAID THAT IS WHAY SHE PREFERRED TO DO. PT DOESN'T SEEM TO UNDERSTAND DISCHARGE PLANS. SHE IS ALERT AND ORIENTED, BUT DOES HAVE MOMENTS THAT SHE SEEMS CONFUSED. DISCUSSED ALL OF THIS WITH PT'S RN.
[2020-12-31 16:10] VITALS: BP 131/53
[2020-12-31 19:45] VITALS: BP 121/62
--- NOTE | 2020-12-31 19:52 | NUR ---
ASSUMED PT CARE AROUND 0715. PT ALERTX ORIENTED X 3-4. CONFUSED AND FORGETFUL AT TIMES. IV LEFT AC HAD 3 BM TODAY. PAIN OF 8-9 NOTED, PAIN PARTIALLY CONTROLLED BY PAIN MEDS. PT ASKED FOR CORTISOL CREAM FOR ITCHING, RN NOTIFIED DR ABOUT THE NEED.PT REFUSED PICCLINE INSERTION 3 DAYS IN A ROW. NOTIFIED. DR FRAIRE ASKED THE DAY SHIFT NURSE ON 01/01/2021 TO CALL HIM WHEN THE IV TEAM IS HERE TO PUT PICC LINE. SAID, HE WILL TALK TO THE PT IN THE PRESENCE OF IVTEAM AND GET IT DONE. ALREADY EXPLAINED TO THE PT TODAY ABOUT PICC LINE INSERTION, BUT WHEN THE TEAM WAS HERE, PT REFUSED. RN LET CONSUMER PRODUCT ADVISOR KNOW TO PASS THE MESSAGE TO DAY SHIFT TOMORROW, December. SHIFT REPORT GIVEN TO CONSUMER PRODUCT ADVISOR.
--- NOTE | 2021-01-01 02:56 | NUR ---
PT IS A/O WITH SOME FORGETFULLNESS. ROOM AIR. VSS AFEBRILE. VOIDS PER BSC AND IS UP WITH ASSISTANCE X1. IS NOT WANTING TO BEAR ANY TYPE OF WEIGHT TO THE RIGHT KNEE STATING IT HURTS TOO MUCH TO. PRN PAIN MEDICATION GIVEN DIRECTED. PT IS PLEASANT AND COOPERATIVE. FALL PRECAUTIONS IN PLACE, CALL LIGHT IS WITHIN REACH. WILL CONTINUE TO MONITOR.
[2021-01-01 04:20] VITALS: BP 126/61
[2021-01-01 07:15] VITALS: BP 129/57
--- NOTE | 2021-01-01 12:32 | NUR ---
VAT SPOKE WITH PT ,WHO IS IN AGREEMENT TO HAVE PICC PLACED TODAY. ORDER,CONSENT VERIFIED. MADY BASILIC WAS WIDELY PATENT WITH USG, MEASURED 31%. 4FR SL POWER PICC TRIMMED TO 43CM INSERTED TO 0CM X 1 STICK. 3CG CONFIRMED PICC PLACEMENT WITH PEAKED P-WAVES ON 3CG. PICC RELEASED FOR IMMEDIATE USE PER PROTOCOL TO RADHA SYKES. PT TOLERATED WELL.
[2021-01-01 16:45] VITALS: BP 124/66
--- NOTE | 2021-01-01 17:53 | NUR ---
PT ASSESSED AT START OF SHIFT. SOMEWHAT FORGETFULNESS NOTED AFTER TAKING PAIN MEDS. MOVING BETTER-GETTING UP TO USE BSC EACH TIME. DANGLED ON SIDE OF BED FOR DINNER. GOING LONGER BETWEEN PAIN PILLS. HAD PICC LINE PLACED IN RT UPPER ARM. PT LOOKING FORWARD TO GOING TO REHAB.
[2021-01-01 19:22] VITALS: BP 136/71
[2021-01-02 03:42] VITALS: BP 129/78
--- NOTE | 2021-01-02 05:04 | NUR ---
ASSUMED PT CARE AT 1900.PT ALERT WITH CONFUSION.DRSG TO HER R KNEE C/D/I AT START OF SHIFT,PT LATER TOOK IT OFF AT [place] DUE TO CONFUSION.DRGS REPLACED,PT POLO WELL.R KNEE NOTED TO BE SWOLLEN.PT UP WITH ASSIST TO THE BSC.PAIN MANGED WITH PRN PAIN MED.CALL LIGHT WITHIN REACH.
[2021-01-02 05:50] LABS: HEMATOCRIT 30.2 % (37.0-47.0); MCHC 33.2 g/dL (28.0-37.0); MCV 84.3 fL (80.0-100.0); RBC 3.58 mil/uL (4.20-5.00); RDW 14.2 % (10.5-14.5); WBC 6.2 thou/uL (4.0-11.0)
[2021-01-02 05:57] LABS: CALCIUM 8.6 mg/dL (8.5-10.1); CREATININE 0.5 mg/dL (0.6-1.0)
[2021-01-02 08:10] VITALS: BP 114/63
--- NOTE | 2021-01-02 11:31 | NUR ---
PT HAD BEEN ACCEPTED TO OP N&R NOTIFICATION SENT TO [facility]. CM SPOKE WITH ELODIA IN ADMISSIONS AT THE FACILITY AND SHE INDICATED THAT THEY SUBMITTED FOR AUTH. CM FAXED CLINICAL UPATED PROG NOTES AND PT NOTES FROM TODAY. AWAITING AUTH. RAPID COVID TEST DONE.
--- NOTE | 2021-01-02 12:02 | HC ---
[facility] [place] [address] CONSULTATION Name: SASHA JOHNSON Room #: 443-P ADM IN M.R.#: [id number] Admission: 12/26/20 Attend Phys: Norma Goodson MD Discharge: Date of : 41 Report #: [id number] THIS REPORT FOR: cc: SHIV OWEN Physician not on staff Ricardo Baeza MD ~ DOC #: [id number] Ricardo Baeza MD DATE OF SERVICE: 12/27/2020 HISTORY OF PRESENT ILLNESS: The patient is a 75-year-old white female who had a fall last week, with the onset of right knee pain, unable to ambulate. She was noted to be admitted to [facility]. She is uncertain what they found over there. She has been unable to ambulate with significant swelling of her knee and has been admitted this time to [facility]. She was seen by Orthopedics. Noted to have considerable swelling and underwent joint aspiration last evening with sending out fluid to rule out possible gout. She is thought to have osteoarthritis. MRI of the knee is currently pending for today. Therapy orders have also been written, which are currently pending. We are seeing her in rehabilitation medicine consultation. PAST MEDICAL HISTORY: Includes hypertension, cardiomyopathy. She has had prior right knee surgery, history of congestive heart failure. MEDICATIONS: Please see the full medication listing. ALLERGIES: Multiple, see the list as noted. HABITS: No history of alcohol or tobacco abuse. SOCIAL HISTORY: Lives with a male roommate, 2 steps in which are ramped. There are twelve steps down to the basement with bilateral hand rails, although she does not have to go down there. She did not utilize assistive devices, although she does have assistive devices that are around the house. Both she and her male roommate are retired. REVIEW OF SYSTEMS: No current complaints of chest pain, shortness of breath or abdominal discomfort. PHYSICAL EXAMINATION: GENERAL: A 75-year-old white female in no obvious distress. VITAL SIGNS: Last recorded temperature 36.9, pulse 78, respirations 18, blood pressure 143/71. The patient is alert. HEENT: Appeared to be benign. NEUROLOGIC: Cranial nerves are grossly intact. Facies are symmetric. She does have functional range of motion of both upper extremities without focal [address] [address] CONSULTATION Name: SASHA JOHNSON Room #: 443-P [facility] IN M.R.#: [id number] Admission: 12/26/20 Attend Phys: Norma Goodson MD Discharge: Date of : 41 Report #: [id number] weakness. EXTREMITIES: Lower extremities, her right knee is dressed with Osman wrap in place. No calf swelling. I do not actually examined the right knee. She can dorsiflex the right ankle and plantar flex. No focal weakness of the right ankle. Functional range of motion of the left lower extremity without obvious focal weakness. No focal calf swelling. Tone appeared to be intact. ASSESSMENT: A 75-year-old white female with the following problems: 1. Right knee pain with swelling, status post joint aspiration, currently pending. 2. Osteoarthritis. 3. Inability to ambulate. 4. Hypertension. 5. History of cardiomyopathy. 6. History of fibromyalgia. 7. History of chronic fatigue. 8. Thyroid surgery at [facility] 6 years ago. PLAN: Workup is underway with MRI of the knee pending. PT and OT orders have been written with evaluations underway. We will be glad to follow along regarding her rehab therapy issues as she further medically stabilizes. Thank you for asking us to assist in this patient's care. Ricardo Baeza MD DGS <ELECTRONICALLY SIGNED> By: Ricardo Baeza MD 01/02/21 1202 [id number] [id number] Ricardo Baeza MD /nt
--- NOTE | 2021-01-02 14:28 | NUR ---
ASSUMED PT CARE THIS AM. PT A&OX4, BUT FORGETFUL. PATIENT ABLE TO MAKE NEEDS KNOWN. JÚNIOR WRAP ON RIGHT KNEE, APPLYING ICE NEEDED FOR PAIN. PATIENT IS ON ROOM AIR. AMBULATORY TO BEDSIDE COMMODE WITH ASSIST. PATIENT TOOK MORNING MEDICATIONS WITHOUT ISSUE. PICC LINE TO RIGHT UPPER ARM SALINE LOCKED. FALL PRECAUTIONS ARE IN PLACE, CALL LIGHT WITHIN REACH.
--- NOTE | 2021-01-02 16:00 | NUR ---
ELODIA WITH [facility] CALLED AND INDICATED THAT THEY HAD GOTTEN AUTH BUT THAT THEY ARE SHORT STAFFED TO RECEIVED AN ADMISSION THIS EVENING. THEY ARRANGED VAN TANSPORT FOR TOMORROW AT 11:00. CM FAXED NEGATIVE COVID TEST AND PASS-R SCREENING. ORDERS TO BE FAXED IN THE AM. CM NOTIFIED PT AND PHYSICIAN. DC TO [facility] TOMORROW Saturday01/03/21 VIA VAN AT 11:00.
[2021-01-02 16:30] VITALS: BP 120/62
[2021-01-02 19:40] VITALS: BP 128/75
--- NOTE | 2021-01-03 03:11 | NUR ---
ASSUMED PT CARE AT 0715. PT WAS LYING IN BED, INTRODUCED SELF AND PT DID NOT VOICE ANY CONCERNS, NO VISIBLE SIGN OF DISTRESS NOTED. BED ON LOWEST LOCKED POSITION, BED ALARM ON AND CALL LIGHT WITHIN REACH. PT DID NOT HAVE A BOWEL MOVEMENT ON THIS SHIFT. PT IS RESTLESS AND HAD COUPLE HOURS OF SLEEP. PT REQUESTED FOR HOT TEA TO HELP CALM HER NERVES. PT IS ALERT AND ORIENTED BUT CAN BE FORGETFUL.
[2021-01-03 08:00] VITALS: BP 132/71
[2021-01-03] MEDS ORDERED: HYDROCODON-ACE1 EAC7 PO (08:58)
[2021-01-03] MEDS ORDERED: CEFAZOLIN2 GM/100 M IV (09:00)
[2021-01-03 09:19] VITALS: BP 132/71
--- NOTE | 2021-01-03 10:04 | NUR ---
Assumed care of pt at 0700. Pt alert bur forgetful. Pain controlled with prn pain meds. PICC line in place. Pt will d/c to facility at 1100. Call light within reach. Fall precautions in place. Will continue to monitor.
--- NOTE | 2021-01-03 11:58 | NUR ---
ON-GOING ASSESSMENT: IT WAS PASSED ON THE THIS CM THAT TRANSPORTATION HAS ALREADY BEEN ARRANGED FOR PATIENT PREVIOUS DAY TO GO TO SNF AT [facility] TODAY AT 1100. CM ORDERED CHART COPY AND NOTIFIED BURGLAR ALARM INSTALLER. CM ALSO NOTIFIED BEDSIDE RN WHO HAS THE NUMBER FOR REPORT. PT IS AGREEABLE WITH PLAN AND STATES SHE NOTIFIED NAINA. CM FAXED DISCHARGE ORDERS TO FACILITY AND CONFIRMED THEY RECEIVED IT. TRANSPORT ARRANGED FOR 1100 PT REPORTS NO FURTHER NEEDS FROM .
== END 2021-01-03 11:43 | DRG 486 ==
LOC: ER 10:25 → EROBS 12:35 → 4S 12:35
PROVIDERS: Hospitalist; Nurse Practitioner; Orthopaedic Surgery Foot and Ankle Surgery; ADMIT Internal Medicine; ATTEND Internal Medicine
PROC: 0SBC4ZZ Excision of Right Knee Joint, Percutaneous Endoscopic Approach (ICD-10-PCS; principal; 2020-12-28)
PROC: 3E1U48Z Irrigation of Joints using Irrigating Substance, Percutaneous Endoscopic Approach (ICD-10-PCS; principal; 2020-12-28)
PROC: 05HY33Z Insertion of Infusion Device into Upper Vein, Percutaneous Approach (ICD-10-PCS; 2021-01-01)
DX: M00.061 Staphylococcal arthritis, right knee (principal); I42.9 Cardiomyopathy, unspecified; M17.11 Unilateral primary osteoarthritis, right knee; I50.9 Heart failure, unspecified; S83.281A Other tear of lateral meniscus, current injury, right knee, initial encounter; K59.00 Constipation, unspecified; R53.81 Other malaise; Z20.822 Contact with and (suspected) exposure to COVID-19; G47.00 Insomnia, unspecified; B95.61 Methicillin susceptible Staphylococcus aureus infection as the cause of diseases classified elsewhere; Z88.6 Allergy status to analgesic agent; Z88.1 Allergy status to other antibiotic agents; I11.0 Hypertensive heart disease with heart failure; X58.XXXA Exposure to other specified factors, initial encounter; Z88.8 Allergy status to other drugs, medicaments and biological substances; Y93.89 Activity, other specified; Y92.89 Other specified places as the place of occurrence of the external cause; Y99.8 Other external cause status
CPT/HCPCS: 10195; 27000; 50010; 50101; 50405; 51412; 56526; 57103; 57180; 58577; 58589; 62110; 62900; 70005

== ENCOUNTER → 2021-01-19 | Outpatient (CLI) | payer OTHER ==
[~2021-01-19] MED LIST changes: +CEFAZOLIN2 GM/100 M IV; +CUBICIN500 MG IV; +HYDROCODON-ACE1 EAC7 PO; +HYDROCORTISON TOP; +HYDROCORTISON28.4 G5 TOP
[2021-01-19 10:13] LABS: ABSOLUTE NEUTROPHILS 4.5 thou/uL (1.4-8.2); BASOPHILS 2.6 % (0.0-2.0); EOSINOPHILS 2.4 % (0.0-3.0); HEMATOCRIT 31.8 % (37.0-47.0); HEMOGLOBIN 10.4 gm/dL (12.0-15.0); LYMPHOCYTES 12.4 % (24.0-44.0); MCH 27.5 pg (26.0-34.0); MCHC 32.8 g/dL (28.0-37.0); MCV 83.9 fL (80.0-100.0); MONOCYTES 9.9 % (1.0-8.0); PLATELET COUNT 403 thou/uL (150-400); POLYS 72.7 % (36.0-66.0); RDW 15.8 % (10.5-14.5); WBC 6.2 thou/uL (4.0-11.0)
[2021-01-19 10:30] LABS: ALBUMIN 2.8 g/dL (3.4-5.0); CALCIUM 8.9 mg/dL (8.5-10.1); CREATININE 0.5 mg/dL (0.6-1.0); POTASSIUM 3.6 mmol/L (3.5-5.1); TOTAL BILIRUBIN 0.4 mg/dL (0.2-1.0); TOTAL PROTEIN 6.8 g/dL (6.4-8.2)
[2021-01-19 10:32] VITALS: BP 121/70
--- NOTE | 2021-01-19 14:19 | NUR ---
PATIENT ARRIVED IN WHEELCHAIR WITH FRIEND NAINA WHO ALSO NEEDED ASSTIANCE OF A WHEELCHAIR TO GET TO THE CLINIC. PATIENT PICC LINE DRESSING CHANGE DUE TODAY. SITE WITHOUT REDNESS OR DRAINAGE. PICC HAD BRISK BLOOD RETURN. PATIENT STATES SHE HAS PAIN OF 5-6 WITH MOVEMENT OF RIGHT KNEE. USING TYLENOL AND ICE AT HOME FOR PAIN. MOVES SLOWLY BUT BEARS WEIGHT. USES WALKER AT HOME FOR SLIGHT AMBULATION. NAIMA NOTED RIGHT KNEE. SWELLING RIGHT KNEE OF 14 1/2 INCHES CIRCUMFRENCE AT PATELLA. DISCUSSED HER MULTIPLE SENSITIVITIES AND ALLERGIES. TOLERATED DAPTOMYCIN INFUSION WITHOUT ANY COMPLAINTS. INSTRUCTED TO CALL AHEAD TOMORROW AM FOR MEDICINE. ALSO DISCUSSED AMOUNT OF COPAY AND PAITNET IS AWARE AND OK WITH DAILY COPAYMENT AT REGISTRATION WHEN SHE ARRIVES. PATIENT VERBALIZED UNDERSTANDING OF ALL TEACHING DONE. TO RETURN IN AM FOR NEXT TREATMENT.
--- NOTE | 2021-01-19 14:44 | NUR ---
ARRIVED AMBULATORY FOR EVERY TWO WEEK THERAPEUTIC PHLEBOTOMY. CBC DRAWN BY LAB, RESULTED AND FAXED TO . HGB 13.7, HCT 39.6. STATES HE HAS BEEN FEELING WELL. 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 PARAMETERS WERE MEANT TO DO THERAPEUTIC PHLEBOTOMY AND ONE UNIT WAS REMOVED FROM RIGHT AC. HEMOSTASIS NOTED RIGHT AC WITH COBAN DRESSING APPLIED. INSTRUCTED TO REMOVE WHEN HE GETS HOME. POST BP 143/73. WAS HYDRATED WITH WATER AND ORANGE JUICE PRIOR TO PHLEBOTOMY AND WATER AFTER PHLEBOTOMY. SCHDULED TO RETURN IN TWO WEEKS. PATIENT HAS ROTATOR CUFF SURGERY ON 01/23/21. INSTRUCTED TO CALL IF HE NEEDS TO RESCHEDULE HIS APPOINTMENT. DC AMBULATORY IN STABLE CONDITION. VOICED NO COMPLAINTS.
[2021-01-20 09:06] VITALS: BP 121/70
== END ==
LOC: OPONC 09:04
PROVIDERS: ATTEND Specialist
DX: A49.01 Methicillin susceptible Staphylococcus aureus infection, unspecified site (principal)
CPT/HCPCS: 95000

== ENCOUNTER → 2021-01-20 | Outpatient (CLI) | payer OTHER ==
[2021-01-20 08:50] VITALS: BP 128/77
--- NOTE | 2021-01-20 16:35 | NUR ---
HERE EARLIER TODAY FOR HER INFUSION. REPORTS NO UNTOWARD EFFECTS FROM YESTERDAY'S DAPTO. DENIES N/V/DIARRHEA, FEVER/CHILLS. JUST C/O FEELING TIRED. REPORTS EATING WELL. PICC LINE INTACT, BRISK BLOOD RETURN. TOLERATED TODAY'S INFUSION WITHOUT INCIDENT. PT AND NAINA, SIGNIFICANT OTHER, BOTH HAVE MOBILITY ISSUES. IN LIGHT OF THIS AND PT'S HIGH OUT OF POCKET TO RECEIVE INFUSIONS AT OUR FACILITY, ASKED PT IF SHE WOULD LIKE FOR US TO CHECK INTO BENEFITS FOR HOME INFUSIONS. PT VERY MUCH IN FAVOR OF THIS. SPOKE WITH NATI IN DR. GUZMAN'S OFFICE WHO DID GET PT SET UP WITH [facility] WHO WILL ASSUME ALL CARE OF THIS EVENING. ONEL HOLLOWAY WITH [facility] CALLED FROM PT'S HOME THIS AFTERNOON TO CONFIRM PLAN. LABS FAXED TO [facility].
== END ==
LOC: OPONC 10:50
PROVIDERS: ATTEND Specialist
DX: A49.01 Methicillin susceptible Staphylococcus aureus infection, unspecified site (principal)
CPT/HCPCS: 95000